=== PATIENT | female | born 1975 | race Two or more races ===

== ENCOUNTER 2016-08-27 14:46 | Outpatient (CLI) | payer BC ==
[2016-08-27 16:00] LABS: APPEARANCE,URINE SLIGHTLY-CLOUDY; BILIRUBIN,URINE NEGATIVE (NEGATIVE); GLUCOSE, URINE NEGATIVE (NEGATIVE); KETONES,URINE NEGATIVE (NEGATIVE); LEUKOCYTE ESTERASE,URINE NEGATIVE (NEGATIVE); NITRITE,URINE NEGATIVE (NEGATIVE); PROTEIN,URINE NEGATIVE (NEGATIVE); URINE SPECIFIC GRAVITY 1.005; UROBILINOGEN,URINE NEGATIVE mg/dL (<2.0)
--- NOTE | 2016-08-27 16:01 | L&D Flow Sheet ---
LD Flowsheet Datetime Report Generated by CPN: 08/27/2016 16:00 Datetime: 08/27/2016 15:45 Vital Signs NBP Sys/Stacey/Mean (mmHg): 116 (QS system process) : 77 (QS system process) : 91 (QS system process) Pulse: 93 (QS system process) Datetime: 08/27/2016 15:15 Vital Signs NBP Sys/Stacey/Mean (mmHg): 108 (QS system process) : 63 (QS system process) : 80 (QS system process) Pulse: 96 (QS system process)
[2016-08-27 16:13] LABS: URINE BARBITURATES SCREEN NEGATIVE; URINE METHADONE SCREEN NEGATIVE; URINE OPIATES LOW NEGATIVE; URINE PHENCYCLIDINE SCREEN NEGATIVE
--- NOTE | 2016-08-27 16:59 | Non Stress Test Report ---
Non Stress Test Datetime Report Generated by CPN: 08/27/2016 16:59 DEMOGRAPHIC EGA NST: 34.6 INDICATION Indication for Study: Ordered by Provider MONITORING Monitor Explained: Monitor Explained; Test Explained; Patient Verbalized Understanding Time on Monitor: 08/27/2016 14:55 Time off Monitor: 08/27/2016 16:46 NST Duration: 111 NST INTERVENTIONS NST Interventions: PO Hydration; Reposition Patient Physician Notified NST: Dr. Deng BABY A: [id number] BABY A Movement : Present Contraction Frequency : 0 FHR Baseline : 130 Accelerations : 15X15 Decelerations : None Variability : Moderate 6-25bpm NST Review: Meets Criteria for Reactive NST NST Review and Verified By : Nusrat Greene RN NST Results: Reactive NST REPORT Report Trigger: Send Report
== END 2016-08-27 16:54 | disposition home or self-care (01) ==
LOC: LC 14:46
PROVIDERS: ATTEND Obstetrics & Gynecology
PROC: 4A1HXCZ Monitoring of Products of Conception, Cardiac Rate, External Approach (ICD-10-PCS; principal; 2016-08-27)
DX: O09.523 Supervision of elderly multigravida, third trimester (principal); Z3A.34 34 weeks gestation of pregnancy
CPT/HCPCS: 59025; 80307; 81001

== ENCOUNTER 2016-08-31 12:06 | Outpatient (CLI) | payer BC ==
--- NOTE | 2016-08-31 13:11 | Non Stress Test Report ---
Non Stress Test Datetime Report Generated by CPN: 08/31/2016 13:11 DEMOGRAPHIC EGA NST: 35.3 INDICATION Indication for Study: Ordered by Provider MONITORING Monitor Explained: Monitor Explained; Test Explained; Patient Verbalized Understanding Time on Monitor: 08/31/2016 12:20 Time off Monitor: 08/31/2016 13:03 NST Duration: 43 NST INTERVENTIONS NST Interventions: PO Hydration Physician Notified NST: P. Marcos, CNM BABY A: [id number] BABY A Movement : Present Contraction Frequency : none FHR Baseline : 145 Accelerations : 15X15 Decelerations : None Variability : Moderate 6-25bpm NST Review and Verified By : Theodore Winston RN NST Results: Reactive NST REPORT Report Trigger: Send Report
== END 2016-08-31 13:09 | disposition home or self-care (01) ==
LOC: LC 12:06
PROVIDERS: ATTEND Student in an Organized Health Care Education/Training Program
PROC: 4A1HXCZ Monitoring of Products of Conception, Cardiac Rate, External Approach (ICD-10-PCS; principal; 2016-08-31)
DX: O36.8130 Decreased fetal movements, third trimester, not applicable or unspecified (principal); O09.523 Supervision of elderly multigravida, third trimester; Z3A.35 35 weeks gestation of pregnancy
CPT/HCPCS: 59025; 82962

== ENCOUNTER 2016-09-28 06:12 | Inpatient (IN) | payer BC ==
[2016-09-24 10:52] LABS: ABSOLUTE EOSINOPHILS # (AUTO) 0.1 10^3/uL (0.0-0.6); ABSOLUTE LYMPHOCYTES (AUTO) 1.6 10^3/uL (0.5-4.7); ABSOLUTE MONOCYTES (AUTO) 0.6 10^3/uL (0.1-1.4); BASOPHILS % (AUTO) 0.2 % (0-2); EOSINOPHILS % (AUTO) 1.3 % (0-6); HEMATOCRIT 40.2 % (36.0-47.0); HEMOGLOBIN 13.7 g/dL (12.0-15.5); HGB HCT DIFFERENCE 0.9; LYMPHOCYTES % (AUTO) 15.7 % (13-45); MEAN CORPUSCULAR HGB CONC 34.2 g/dL (32.0-36.0); MEAN CORPUSCULAR VOLUME 91 fl (80-97); MONOCYTES % (AUTO) 5.5 % (3-13); RED BLOOD COUNT 4.44 10^6/uL (3.72-5.28); RED CELL DISTRIBUTION WIDTH 13.8 % (11.5-14.0); SEGMENTED NEUTROPHILS % (AUTO) 77.3 % (42-78); WHITE BLOOD COUNT 10.4 10^3/uL (4.0-10.5)
[2016-09-24 10:54] LABS: APPEARANCE,URINE SLIGHTLY-CLOUDY; BILIRUBIN,URINE NEGATIVE (NEGATIVE); GLUCOSE, URINE NEGATIVE (NEGATIVE); KETONES,URINE NEGATIVE (NEGATIVE); LEUKOCYTE ESTERASE,URINE NEGATIVE (NEGATIVE); NITRITE,URINE NEGATIVE (NEGATIVE); PROTEIN,URINE NEGATIVE (NEGATIVE); URINE SPECIFIC GRAVITY 1.003; UROBILINOGEN,URINE NEGATIVE mg/dL (<2.0)
[2016-09-24 11:13] LABS: URINE BARBITURATES SCREEN NEGATIVE; URINE METHADONE SCREEN NEGATIVE; URINE OPIATES LOW NEGATIVE; URINE PHENCYCLIDINE SCREEN NEGATIVE
[2016-09-28] MEDS ORDERED: CEFAZOLIN 2 GM/D5W RTU 2 GM/50 ML RTUPB IV ONE (06:30)
[2016-09-28] MEDS ORDERED: LACTATED RINGERS 1000 ML IV PRN (07:00)
[2016-09-28] MEDS ORDERED: LIDOCAINE 0.5% INJ-PF (5 MG/ML) 50 ML SDV SUBCUT PRN (07:00)
[2016-09-28] MEDS ORDERED: RINGERS SOLUTION,LACTATED 1,000 ML IV PRN (07:14)
[2016-09-28] MEDS ORDERED: OXYTOCIN 10 UNIT/ML VIAL ONE (10:33)
[2016-09-28] MEDS ORDERED: FENTANYL CITRATE INJ/PF 250 MCG/5 ML AMPULE ONE (10:34)
[2016-09-28] MEDS ORDERED: FENTANYL CITRATE INJ/PF 100 MCG/2 ML AMPUL ONE ×2 (10:34→14:25)
[2016-09-28] MEDS ORDERED: KETOROLAC TROMETHAMINE INJ/PF 30 MG/1 ML SDV ONE (10:34)
[2016-09-28] MEDS ORDERED: EPHEDRINE SULFATE INJ 50 MG/1 ML AMPULE ONE (10:34)
[2016-09-28] MEDS ORDERED: ACETAMINOPHEN 0 ML IV ONE (10:34)
[2016-09-28] MEDS ORDERED: OXYTOCIN/NORMAL SALINE 20 UNIT/1,000 ML RTUINJ ONE (10:34)
[2016-09-28] MEDS ORDERED: MIDAZOLAM 2 MG/2 ML INJ ONE ×3 (10:34→12:41)
[2016-09-28] MEDS ORDERED: ONDANSETRON HCL INJ/PF 4 MG/2 ML SDV ONE (10:35)
[2016-09-28] MEDS ORDERED: DIPHENHYDRAMINE HCL 50 MG/ML VIAL IV PRN (11:17)
[2016-09-28] MEDS ORDERED: ONDANSETRON HCL INJ/PF 4 MG/2 ML SDV IV PRN (11:17)
[2016-09-28] MEDS ORDERED: FENTANYL CITRATE INJ/PF 100 MCG/2 ML AMPUL IV PRN (11:17)
[2016-09-28] MEDS ORDERED: PROMETHAZINE HCL INJ 25 MG/1 ML VIAL IV PRN ×2 (11:17→13:45)
[2016-09-28] MEDS ORDERED: LABETALOL HCL INJ 20 MG/4 ML DISP.SYRIN IV PRN (11:17)
[2016-09-28] MEDS ORDERED: PROPOFOL INJ 200 MG/20 ML VIAL IV ONE (12:41)
[2016-09-28] MEDS ORDERED: HYDROMORPHONE HCL INJ/PF 2 MG/ML AMPULE IV PRN (13:45)
[2016-09-28] MEDS ORDERED: MEASLES,MUMPS&RUBELLA VACC/PF 0.5 ML VIAL SUBCUT PRN (13:45)
[2016-09-28] MEDS ORDERED: DIPH/PERTUSS(ACELL)/TETANUS VAC/PF 0.5 ML SYR (>=10YO) IM PRN (13:45)
[2016-09-28] MEDS ORDERED: OXYTOCIN/NORMAL SALINE 1,000 ML IV PRN (13:45)
[2016-09-28] MEDS ORDERED: OXYCODONE-ACETAMINOPHEN 5-325 MG TABLET PO PRN (13:45)
[2016-09-28] MEDS ORDERED: ACETAMINOPHEN 325 MG TABLET PO PRN (13:45)
[2016-09-28] MEDS ORDERED: SIMETHICONE 80 MG TAB.CHEW PO PRN (13:45)
--- NOTE | 2016-09-28 14:00 | L&D Flow Sheet ---
LD Flowsheet Datetime Report Generated by CPN: 09/28/2016 14:00 Datetime: 09/28/2016 13:58 NBP Sys/Stacey/Mean (mmHg): 116 (QS system process) : 71 (QS system process) : 88 (QS system process) Pulse: 83 (QS system process) Datetime: 09/28/2016 13:56 Pulse: 89 (QS system process) SpO2 (%): 99 (QS system process) Datetime: 09/28/2016 13:51 Pulse: 86 (QS system process) SpO2 (%): 100 (QS system process) Datetime: 09/28/2016 13:46 Pulse: 88 (QS system process) SpO2 (%): 100 (QS system process) Datetime: 09/28/2016 13:45 Stage of : Recovery (Trudi ALIDA Winston) Pain Scale: 0 (Trudi ALIDA Winston) Pain Presence: None/Denies (Trudi Winston RN) Pain Type: N/A (Trudi Vitrano, RN) Datetime: 09/28/2016 13:42 NBP Sys/Stacey/Mean (mmHg): 128 (QS system process) : 74 (QS system process) : 93 (QS system process) Pulse: 91 (QS system process) Respirations: 16 (Trudi Vitrano, RN) Datetime: 09/28/2016 13:41 Pulse: 92 (QS system process) SpO2 (%): 100 (QS system process) Datetime: 09/28/2016 13:36 Pulse: 88 (QS system process) SpO2 (%): 100 (QS system process) Datetime: 09/28/2016 13:30 Stage of : Recovery (Trudi Vitrano, RN) Pulse: 92 (QS system process) SpO2 (%): 99 (QS system process) Pain Scale: 0 (Trudi Vitrano, RN) Pain Presence: None/Denies (Trudi Vitrano, RN) Pain Type: N/A (Trudi Vitrano, RN) Datetime: 09/28/2016 13:27 NBP Sys/Stacey/Mean (mmHg): 115 (QS system process) : 71 (QS system process) : 88 (QS system process) Pulse: 81 (QS system process) Respirations: 16 (Trudi Vitrano, RN) Datetime: 09/28/2016 13:25 Pulse: 83 (QS system process) SpO2 (%): 99 (QS system process) Datetime: 09/28/2016 13:22 NBP Sys/Stacey/Mean (mmHg): 114 (QS system process) : 68 (QS system process) : 85 (QS system process) Pulse: 90 (QS system process) Respirations: 16 (Trudi Vitrano, RN) Datetime: 09/28/2016 13:20 Pulse: 83 (QS system process) SpO2 (%): 100 (QS system process) Datetime: 09/28/2016 13:17 NBP Sys/Stacey/Mean (mmHg): 170 (QS system process) : 60 (QS system process) : 86 (QS system process) Pulse: 106 (QS system process) Datetime: 09/28/2016 13:15 Pulse: 98 (QS system process) SpO2 (%): 99 (QS system process) Datetime: 09/28/2016 13:13 NBP Sys/Stacey/Mean (mmHg): 144 (QS system process) : 56 (QS system process) : 81 (QS system process) Pulse: 88 (QS system process) Respirations: 16 (Trudi Vitrano, RN) Datetime: 09/28/2016 13:10 Stage of : Recovery (Trudi Vitrano, RN) Pulse: 98 (QS system process) Respirations: 17 (Trudi Vitrano, RN) SpO2 (%): 99 (QS system process) Temperature (F): 98.5 (Trudi Vitrano, RN) Temperature (C): 36.9 (QS system process) Temperature Route: Oral (Trudi Vitrano, RN) Pain Scale: 0 (Trudi Vitrano, RN) Pain Presence: None/Denies (Trudi Vitrano, RN) Pain Type: N/A (Trudi Vitrano, RN) Datetime: 09/28/2016 07:24 Bedside Blood Glucose: 78 (QS system process) LaborFlag: OB Triage (QS system process)
[2016-09-28] MEDS ORDERED: ACETAMINOPHEN 100 ML IV ONE ×2 (14:30→14:31)
[2016-09-28] MEDS ORDERED: HYDROMORPHONE HCL INJ/PF 2 MG/ML AMPULE ONE (14:48)
--- NOTE | 2016-09-28 15:07 | Operative Report ---
Operative Report DATE OF SURGERY: 09/28/16 PREOPERATIVE DIAGNOSIS: 1. Intrauterine . 2. Intra-abdominal adhesions POSTOPERATIVE DIAGNOSIS: Same OPERATION: 1. Limited open lysis of adhesion. 2. Control of limited peritoneal bleeding SURGEON: KENA NORMAN 1ST EDUCATION AND OUTREACH COORDINATOR: WALLACE ALVARADO ANESTHESIA: Spinal TISSUE REMOVED OR ALTERED: None COMPLICATIONS: None ESTIMATED BLOOD LOSS: minimal INTRAOPERATIVE FINDINGS: See below PROCEDURE: As the general surgeon business administration program chair tomorrow I was asked to come and assist with an control of intra-abdominal bleeding. Upon my arrival, the patient remained under vital anesthesia; the baby had been delivered by section and taken to the nursery. The patient was hemodynamically stable and the uterus had been closed. Dr. Shankar was assisting Dr. Alvarado. I scrubbed in and Dr. Shankar scrubbed out. We found at this point the uterus anteflexed with a thickened evidence of adhesions along along the posterior surface of the uterus consistent with adhesio lysis, and electrocautery of losing. With hand-held retractors in position, there was minimal oozing coming from the mall bowel mesentery disease left cardinal ligament. There was no evidence of bowel injury, and oh evidence of serious mechanical bleeding. Performed adhesio lysis, limited, scissors to free up this portion of small bowel mesentery. We placed a packing in this area and called our attention to the posterior surface of the uterus which had some additional bleeding and this was managed by Dr. Alvarado with a Vicryl [id number] suture were controlled. We ran the small bowel from the ligament of Treitz down towards the terminal ileum and the bowel appeared to be completely normal. We then turned our attention again to the pelvis at the terminal end of the left ligament and there was only minimal ooze coming from the raw ooze peritoneum. We addressed this FloSeal and Surgicel. The area was irrigated out satisfactorily and we felt that the abdominal cavity was safer closure. The remainder the operation was conducted by Dr. Alvarado.
[2016-09-28] MEDS: OXYCODONE-ACETAMINOPHEN 5-325 MG TABLET PO PRN ×2 (16:55→20:59)
[2016-09-28] MEDS: DOCUSATE SODIUM 100 MG CAPSULE PO SCH (18:57)
[2016-09-29 07:42] LABS: HEMATOCRIT 29.5 % (36.0-47.0); HGB HCT DIFFERENCE 0.5; MEAN CORPUSCULAR HEMOGLOBIN 31.2 pg (27.0-33.4); MEAN CORPUSCULAR HGB CONC 34.1 g/dL (32.0-36.0); MEAN CORPUSCULAR VOLUME 92 fl (80-97); RED BLOOD COUNT 3.22 10^6/uL (3.72-5.28); RED CELL DISTRIBUTION WIDTH 13.6 % (11.5-14.0); WHITE BLOOD COUNT 18.3 10^3/uL (4.0-10.5)
[2016-09-29] MEDS: OXYCODONE-ACETAMINOPHEN 5-325 MG TABLET PO PRN ×4 (08:15→22:19)
[2016-09-29] MEDS: DOCUSATE SODIUM 100 MG CAPSULE PO SCH ×2 (09:12→17:11)
[2016-09-29] MEDS: PRENATAL VITAMIN W-O CA NO5/FE FUMARATE/FA CAPSULE PO SCH (09:13)
--- NOTE | 2016-09-29 10:19 | PDOC PROGRESS REPORT ---
Subjective-OB Subjective: Post Delivery Day: 41 year old. Denies any needs at this time. Pt doing well, ambulatory. She reports regular diet, denies flatus. Reports minimal bleeding. Physical Exam (OB) Vital Signs: Temp Pulse Resp BP Pulse Ox 98.6 F 93 18 120/81 99 09/29/16 07:49 09/29/16 07:49 09/29/16 07:49 09/29/16 07:49 09/29/16 07:49 Intake & Output 09/28/16 09/29/16 09/30/16 06:59 06:59 06:59 Intake Total 690 Output Total 900 Balance -210 Weight 61 kg - Dressing Removed: No - open to air Incision: Open, Well Approximated Closure Type: Surgical Glue - Lochia Lochia Amount: Small 10-25 ml Lochia Color: Rubra/Red - Abdomen Description: Tender, Soft Hernia Present: No Fundal Description: Firm, Midline Fundal Height: u/u - u/2 Objective-Diagnostic Laboratory: 09/29/16 07:29 09/29/16 07:29 WBC 18.3 H RBC 3.22 L Hgb 10.0 L Hct 29.5 L MCV 92 MCH 31.2 MCHC 34.1 RDW 13.6 Plt Count 228 Assessment and Plan(PN) - Assessment and Plan (1) delivery delivered Is this a current diagnosis for this admission?: Yes - Time Spent with Patient Time with patient: Less than 15 minutes Medications reviewed and adjusted accordingly: Yes - Disposition Anticipated Discharge: Home Within: within 48 hours
[2016-09-30] MEDS: OXYCODONE-ACETAMINOPHEN 5-325 MG TABLET PO PRN ×2 (05:34→09:37)
[2016-09-30 07:43] LABS: ABSOLUTE EOSINOPHILS # (AUTO) 0.2 10^3/uL (0.0-0.6); ABSOLUTE LYMPHOCYTES (AUTO) 1.7 10^3/uL (0.5-4.7); ABSOLUTE MONOCYTES (AUTO) 0.6 10^3/uL (0.1-1.4); ABSOLUTE NEUT (AUTO) 11.6 10^3/uL (1.7-8.2); BASOPHILS % (AUTO) 0.2 % (0-2); EOSINOPHILS % (AUTO) 1.3 % (0-6); HEMATOCRIT 28.6 % (36.0-47.0); HEMOGLOBIN 9.6 g/dL (12.0-15.5); HGB HCT DIFFERENCE 0.2; MEAN CORPUSCULAR HGB CONC 33.5 g/dL (32.0-36.0); MEAN CORPUSCULAR VOLUME 93 fl (80-97); MONOCYTES % (AUTO) 4.6 % (3-13); RED BLOOD COUNT 3.09 10^6/uL (3.72-5.28); RED CELL DISTRIBUTION WIDTH 13.8 % (11.5-14.0); SEGMENTED NEUTROPHILS % (AUTO) 81.9 % (42-78); WHITE BLOOD COUNT 14.1 10^3/uL (4.0-10.5)
[2016-09-30] MEDS: PRENATAL VITAMIN W-O CA NO5/FE FUMARATE/FA CAPSULE PO SCH (09:37)
[2016-09-30] MEDS: DOCUSATE SODIUM 100 MG CAPSULE PO SCH (09:37)
--- NOTE | 2016-09-30 11:21 | PDOC PROGRESS REPORT ---
Subjective-OB Subjective: Post Delivery Day: 41 year old. Denies any needs at this time. Ready to go home. Physical Exam (OB) Vital Signs: Temp Pulse Resp BP Pulse Ox 98.6 F 90 16 129/82 H 98 09/30/16 08:32 09/30/16 08:32 09/30/16 08:32 09/30/16 08:32 09/30/16 08:32 Intake & Output 09/29/16 09/30/16 10/01/16 06:59 06:59 06:59 Intake Total 690 950 Output Total 900 Balance -210 950 Weight 61 kg - PIH/Pre-Eclampsia Clonus: Negative Headache: Absent Epigastric Pain: Yes Visual Changes: No - Dressing Removed: No - open to air Incision: Open, Well Approximated Closure Type: Surgical Glue - Lochia Lochia Amount: Scant < 10 ml Lochia Color: Rubra/Red - Abdomen Description: Soft, Round Hernia Present: No Bowel Sounds: Normoactive Flatus Presence: Present Stool: No Fundal Description: Firm Fundal Height: u/u - u/2 Objective-Diagnostic Laboratory: 09/30/16 07:10 09/30/16 07:10 WBC 14.1 H RBC 3.09 L Hgb 9.6 L Hct 28.6 L MCV 93 MCH 31.0 MCHC 33.5 RDW 13.8 Plt Count 260 Seg Neutrophils % 81.9 H Lymphocytes % 12.0 L Monocytes % 4.6 Eosinophils % 1.3 Basophils % 0.2 Absolute Neutrophils 11.6 H Absolute Lymphocytes 1.7 Absolute Monocytes 0.6 Absolute Eosinophils 0.2 Absolute Basophils 0.0 Assessment and Plan(PN) - Time Spent with Patient Medications reviewed and adjusted accordingly: Yes - Disposition Anticipated Discharge: Home
--- NOTE | 2016-09-30 11:56 | PDOC DISCHARGE SUMMARY ---
Final Diagnosis Discharge Date: 09/30/16 - Final Diagnosis (1) AMA (advanced maternal age) multigravida 35+ Is this a current diagnosis for this admission?: Yes (2) delivery delivered Is this a current diagnosis for this admission?: Yes (3) GDM (gestational diabetes mellitus) Is this a current diagnosis for this admission?: Yes (4) Is this a current diagnosis for this admission?: Yes (5) Transverse lie of fetus Is this a current diagnosis for this admission?: Yes Discharge Data - Discharge Medication Home Medications: Vit/Iron Fumarate/FA [ Tablet] 1 each PO DAILY 08/27/16 Docusate Sodium [Colace 100 mg Capsule] 100 mg PO BID #30 capsule 09/30/16 Ibuprofen 800 mg PO Q8HP PRN #30 tablet 09/30/16 Oxycodone HCl/Acetaminophen [Percocet 5-325 mg Tablet] 1 tab PO Q4HP PRN #20 tablet 09/30/16 Gestational Age: 39.3 wks Reason(s) for Admission: Ceasarean Section-Repeat Procedures: NST, Ultrasound Intrapartum Procedure(s): : Low Cervical, Transverse - [place] Data Baby 1 Male at 1 minute: 2 at 5 minutes: 9 Weight: 3.033 kg Home with Mother: Yes Complications: No - Diagnosis Test Laboratory: Temp Pulse Resp BP Pulse Ox 98.6 F 90 16 129/82 H 98 09/30/16 08:32 09/30/16 08:32 09/30/16 08:32 09/30/16 08:32 09/30/16 08:32 09/24/16 09/24/16 09/29/16 09:53 10:02 07:29 RBC 4.44 3.22 L Hgb 13.7 10.0 L Hct 40.2 29.5 L Urine Opiates Screen NEGATIVE 09/30/16 07:10 RBC 3.09 L Hgb 9.6 L Hct 28.6 L Urine Opiates Screen - Discharge information/Instructions Discharge Activity: Activity As Tolerated, Balance Activity w/Rest, No Driving, No Lifting Over 10 Pounds, No Lifting/Push/Pulling, Pelvic Rest, Slowly Increase Activity, No tub bath Discharge Diet: Regular Disposition: HOME, SELF-CARE Follow up with: [facility] in: 1, Weeks
[2016-09-30 12:03] VITALS: BP 127/85
--- NOTE | 2016-10-04 22:52 | Operative Report ---
Nonrecallable Operative Report DATE OF SURGERY: 09/28/16 OPERATION: Prmary via pfannensteil incision 1ST STRIP MACHINE TENDER: BRETT CHAMBERS ANESTHESIA: Spinal PROCEDURE: PREOPERATIVE DIAGNOSIS: undelivered at [39+3] weeks, malpresentation with transverse presentation POSTOPERATIVE DIAGNOSIS: Same as above delivered Procedure: Primary section via Pfannenstiel incision, Lysis of adhesions Supervisor Ski Production:[None] Anesthesia: Spinal Anesthesia provider: [Angel Bhatt INGOT WEIGHER] Estimated blood loss: [600ml] Urine output: [250ml] IV fluids: [3000ml] Complications: [Adhesions of the bowel to posterior uterus. Dr. Gomez called for assistance please see his dictation.] Specimens: [None] Findings: [VMI with transverse back up presentation delivered in breech presentation, triple nuchal cord noted (very tight), meconium stained amniotic fluid noted upon uterine entry. Times of delivery 1124. weight 6#11oz, Apgars 2/9. Normal tubes and ovaries bilaterally, normal uterus except for filmy adhesions from posterior uterus to bowel and diffuse bleeding on posterior uterus after removal of these adhesions, Adhesions from the bowel to the left ovary and mesenteric portion of utero-ovarian ligament.] Indications: [41yo at 39+3ega with JAIME 10/02/2016 with persistent transverse presentaion and the patient declined ECV. THe risks/benefits/ alternatives to Primary section reviewed and the patient desired to proceed with planned procedure.] Procedure: The patient was taken to the operating room where spinal anesthesia was obtained and found to be adequate. She was then prepped and draped in the normal sterile fashion and placed in the dorsal supine position with a leftward tilt. A Pfannenstiel skin incision was then made and carried through to the underlying layers of the fascia with the scalpel. The fascia was incised in the midline and the incision extended laterally with the Engel scissors. The superior aspect of the fascial incision was then grasped with Shima clamps elevated and the underlying rectus muscles dissected off [bluntly]. Attention was then turned to the inferior aspect of the fascial incision which in a similar fashion was grasped, tented up with Hector clamps, and the rectus muscles dissected off [bluntly]. The rectus muscles were then in the midline and the peritoneum at the amount identified and entered [bluntly]. The peritoneal incision was then extended superiorly and inferiorly with good visualization of the bladder. The bladder blade was inserted and the vesicouterine peritoneum identified grasped with Sudanese pickups and entered sharply with the Metzenbaum scissors. This incision was then extended laterally with the Metzenbaum scissors and a bladder flap created digitally. The bladder blade was then reinserted and the lower uterine segment incised in a transverse fashion with the scalpel. The uterine incision was then extended bluntly. The bladder blade was removed and the converted from the transverse presentation and was delivered in breech presentation atraumatically. The triple nuchal cord was reduced. The nose and mouth were suctioned and the cord doubly clamped and cut. And the infant was handed off to waiting pediatricians. The placenta was then delivered spontaneously and the uterus exteriorized and cleared of all clots and debris. The uterine incision was then repaired with 1- 0 Vicryl in a running locked fashion. A second layer of the same suture was used to obtain hemostasis via imbrication of the initial layer. The bladder flap was then repaired with 3-0 chromic in a running fashion. The postior surface of the uterus had multiple areas with poor hemostasis requiring both cautery and suture for hemostasis. After hemostasis obtained there was continued bleeding noted from bowel adhesions to the mesenteric portion of the utero-ovarian ligament. Dr. Chambers and Dr. Gomez called for assistance with evaluation and exposure. Dr. Gomez assisted with evaluation of the bowel and its hemostasis. See his dictation for this portion. The omentum was noted to be hemostatic. THe posterior surface of the uterus was again evaluatedand hemostatic and floseal and interceed applied. The uterus was returned to the patient's abdomen and Interceed was placed overlying the uterine incision to prevent adhesions. The gutters were cleared of all clots and debris. All operative sites were noted to be hemostatic. The fascia was reapproximated with 0 Vicryl in a running fashion from each lateral edge to the midline. The skin was closed with 3-0 Monocryl in a running subcuticular fashion with overlying Dermabond for additional dressing as well as wound closure. The patient tolerated the procedure well. Sponge lap needle and instrument counts are correct times 2. 2 g of Ancef were given prior to skin incision. The patient was taken to the recovery area awake and in stable condition.
== END 2016-09-30 15:10 | disposition home or self-care (01) | DRG 766 ==
LOC: 2S 06:12
PROVIDERS: ADMIT Student in an Organized Health Care Education/Training Program; ATTEND Student in an Organized Health Care Education/Training Program
PROC: 0DNV0ZZ Release Mesentery, Open Approach (ICD-10-PCS; 2016-09-28)
PROC: 0UQ90ZZ Repair Uterus, Open Approach (ICD-10-PCS; 2016-09-28)
PROC: 4A1HXCZ Monitoring of Products of Conception, Cardiac Rate, External Approach (ICD-10-PCS; 2016-09-28)
PROC: 10D00Z1 Extraction of Products of Conception, Low, Open Approach (ICD-10-PCS; principal; 2016-09-28 09:00)
DX: O64.8XX0 Obstructed labor due to other malposition and malpresentation, not applicable or unspecified (principal); O99.89 Other specified diseases and conditions complicating pregnancy, childbirth and the puerperium; O69.1XX0 Labor and delivery complicated by cord around neck, with compression, not applicable or unspecified; N73.6 Female pelvic peritoneal adhesions (postinfective); O77.0 Labor and delivery complicated by meconium in amniotic fluid; O67.8 Other intrapartum hemorrhage; O24.420 Gestational diabetes mellitus in childbirth, diet controlled; Z3A.39 39 weeks gestation of pregnancy; Z37.0 Single live birth
CPT/HCPCS: 1961; 36415; 59025; 80307; 81001; 82962; 85025; 85027; 86850; 86900; 86901; 94799; C1765; J0131; J1170; J1885; J2250; J2405; J2590; J2704; J3010; J3490

== ENCOUNTER 2018-06-06 05:45 | Inpatient (IN) | payer BC ==
[2018-06-03 12:43] LABS: ABSOLUTE EOSINOPHILS # (AUTO) 0.1 10^3/uL (0.0-0.6); ABSOLUTE LYMPHOCYTES (AUTO) 1.6 10^3/uL (0.5-4.7); ABSOLUTE MONOCYTES (AUTO) 0.4 10^3/uL (0.1-1.4); ABSOLUTE NEUT (AUTO) 8.1 10^3/uL (1.7-8.2); BASOPHILS % (AUTO) 0.2 % (0-2); EOSINOPHILS % (AUTO) 0.7 % (0-6); HEMATOCRIT 39.6 % (36.0-47.0); HEMOGLOBIN 13.8 g/dL (12.0-15.5); LYMPHOCYTES % (AUTO) 15.8 % (13-45); MEAN CORPUSCULAR HEMOGLOBIN 31.5 pg (27.0-33.4); MEAN CORPUSCULAR HGB CONC 34.8 g/dL (32.0-36.0); MEAN CORPUSCULAR VOLUME 91 fl (80-97); MONOCYTES % (AUTO) 4.1 % (3-13); PLATELET COUNT 316 10^3/uL (150-450); RED BLOOD COUNT 4.37 10^6/uL (3.72-5.28); RED CELL DISTRIBUTION WIDTH 13.8 % (11.5-14.0); SEGMENTED NEUTROPHILS % (AUTO) 79.2 % (42-78); TOTAL CELLS COUNTED % (AUTO) 100 %; WHITE BLOOD COUNT 10.2 10^3/uL (4.0-10.5)
[2018-06-03 12:53] LABS: APPEARANCE,URINE SLIGHTLY-CLOUDY; BILIRUBIN,URINE NEGATIVE (NEGATIVE); COLOR,URINE YELLOW; GLUCOSE, URINE NEGATIVE (NEGATIVE); KETONES,URINE NEGATIVE (NEGATIVE); LEUKOCYTE ESTERASE,URINE NEGATIVE (NEGATIVE); NITRITE,URINE NEGATIVE (NEGATIVE); PROTEIN,URINE NEGATIVE (NEGATIVE); URINE SPECIFIC GRAVITY 1.012; UROBILINOGEN,URINE NEGATIVE mg/dL (<2.0)
[2018-06-03 13:06] LABS: URINE AMPHETAMINES SCREEN NEGATIVE; URINE BARBITURATES SCREEN NEGATIVE; URINE BENZODIAZEPINES SCREEN NEGATIVE; URINE COCAINE SCREEN NEGATIVE; URINE MARIJUANA (THC) SCREEN NEGATIVE; URINE METHADONE SCREEN NEGATIVE; URINE PHENCYCLIDINE SCREEN NEGATIVE
[~2018-06-06 05:45] MED LIST: CEFAZOLIN 1 GM/D5W RTU 1 GM/50 ML RTUPB IV PRN; LACTATED RINGERS 1000 ML IV PRN; LIDOCAINE 0.5% INJ-PF (5 MG/ML) 50 ML SDV SUBCUT PRN; RINGERS SOLUTION,LACTATED 2,000 ML IV PRN
[2018-06-06] MEDS ORDERED: KETAMINE HCL INJ 500 MG/10 ML VIAL ONE (06:55)
[2018-06-06] MEDS ORDERED: BUPIVACAINE HCL/DEX-WATER/PF 15 MG/2 ML AMPULE ONE (07:00)
[2018-06-06] MEDS ORDERED: OXYTOCIN 10 UNIT/ML VIAL ONE (07:00)
[2018-06-06] MEDS ORDERED: FENTANYL CITRATE INJ/PF 100 MCG/2 ML AMPUL ONE (07:00)
[2018-06-06] MEDS ORDERED: EPHEDRINE SULFATE INJ 50 MG/1 ML AMPULE ONE (07:00)
[2018-06-06] MEDS ORDERED: MIDAZOLAM 2 MG/2 ML INJ ONE (07:01)
[2018-06-06] MEDS ORDERED: OXYTOCIN/NORMAL SALINE 20 UNIT/1,000 ML RTUINJ ONE (07:01)
[2018-06-06] MEDS ORDERED: ACETAMINOPHEN 1,000 MG/100 ML RTUPB IV ONE (07:01)
[2018-06-06] MEDS ORDERED: ONDANSETRON HCL INJ/PF 4 MG/2 ML SDV ONE (07:01)
[2018-06-06] MEDS ORDERED: MORPHINE SULFATE 10 MG/ML INJ IV PRN (08:03)
[2018-06-06] MEDS ORDERED: MEPERIDINE HCL/PF INJ 25 MG/1 ML DISP.SYRIN IV PRN (08:03)
[2018-06-06] MEDS ORDERED: DIPHENHYDRAMINE HCL 50 MG/ML VIAL IV PRN (08:03)
[2018-06-06] MEDS ORDERED: FENTANYL CITRATE INJ/PF 100 MCG/2 ML AMPUL IV PRN ×3 (08:03)
[2018-06-06] MEDS ORDERED: PROMETHAZINE HCL INJ 25 MG/1 ML VIAL IV PRN ×3 (08:03→09:11)
--- NOTE | 2018-06-06 09:05 | PDOC DELIVERY SUMMARY ---
Delivery Summary - Maternal Hx : II Hx # Term Pregnancies: 1 JAIME: 06/11/18 Gestational Age: 39.2 Ruptured Membranes: AROM Time of Rupture: 08:25 Fluids: Clear - Delivery Presentation: Vertex Heart Rate Monitoring: Done Pre-Operatively Support Person Present: Yes Location: OR : Scheduled Placenta: Within Normal Limits Delivery of Placenta Date: 06/06/18 Delivery of Placenta Time: 08:26 - Medications Type of Anesthesia:: Spinal - Assess and Care Baby 1 Male Delivery of Infant Date: 06/06/18 Delivery of Infant Time: 08:25 at 1 minute: 9 at 5 minutes: 9 Preprinted Number On Band: [id number] Skin to Skin: Yes Skin to Skin (Mins): 3 To Nursery At: 08:33 Mode of Transport: Bassinet Delivery Weight: 3,290 Infant Delivery Length: 19.5 in - Delivery Personnel Human Resources Manager: MARLY JASMINE RN: LOLITA LAIRD RN: KOBY GLASER MD: KETNON LEOS
--- NOTE | 2018-06-06 09:10 | Operative Report ---
Operative Report DATE OF SURGERY: 06/06/18 PREOPERATIVE DIAGNOSIS: Patient desires repeat to prevent risk from uterine rupture POSTOPERATIVE DIAGNOSIS: Same with the addition of dense scarring with bowel adhesion to the back of the uterus. OPERATION: Repeat via low transverse uterine incision and skin scar revision SURGEON: KENTON LEOS ANESTHESIA: Spinal TISSUE REMOVED OR ALTERED: Placenta and keloid skin scar COMPLICATIONS: None ESTIMATED BLOOD LOSS: 250 cc INTRAOPERATIVE FINDINGS: Viable male. Dense scar at the fascial level. Bowel adhesion to the back of the uterus. PROCEDURE: Patient was taken to the OR and placed in supine position after her spinal anesthesia. She is prepared and draped in sterile fashion. Schneider was placed for drainage of the bladder. Low transverse incision was made and carried down the level of the fascia. The fascial incision was made with knife and extended bilaterally with curved Engel scissors. The fascia was off the rectus muscles using sharp and blunt dissection. The rectus muscles are in the midline. The peritoneum was entered without incident. Bladder blade was placed in uterine segment was identified. A low transverse incision was made creating a bladder flap. Bladder blade was placed low transverse uterine incision was made with the csafe knife and extended with fingertips. The baby was delivered with some fundal pressure. Mouth and nose were suctioned free. The cord is doubly clamped and cut. Baby is passed off to the roof promenade tile setter in attendance. The placenta was manually extracted with trailing membranes. The uterus was externalized wrapped in a moist lap sponge. Uterine contents wiped free. Uterus was closed with a running locking layer of 0 chromic suture using the second layer to imbricate the first completing a double layer closure of the uterus. The serosa was closed with a running 2-0 chromic stitch. The pelvis was irrigated and suctioned free of fluid the uterus was replaced in the abdomen. Some bowel adhesion was noted to the back of the uterus. There was no evidence of injury to the bowel. Because of its dense nature and the patient was not having difficulty with bowel function this was left alone. The abdominal wall peritoneum was closed with running 2-0 chromic stitch. Fascia was closed with a running 0 Vicryl in 2 segments. Claude's layer was brought together with 0 plain gut stitch and the skin was closed with running subcuticular 4-0 undyed Vicryl stitch. The wound was dressed mother and baby did well.
[2018-06-06] MEDS ORDERED: OXYTOCIN/NORMAL SALINE 20 UNIT/1,000 ML RTUINJ IV PRN (09:11)
[2018-06-06] MEDS ORDERED: SIMETHICONE 80 MG TAB.CHEW PO PRN (09:11)
[2018-06-06] MEDS ORDERED: ACETAMINOPHEN 325 MG TABLET PO PRN (09:11)
[2018-06-06] MEDS ORDERED: RINGERS SOLUTION,LACTATED 1,000 ML IV PRN (09:11)
[2018-06-06] MEDS ORDERED: DIPH/PERTUSS(ACELL)/TETANUS VAC/PF 0.5 ML SYR (>=10YO) IM PRN (09:11)
[2018-06-06] MEDS ORDERED: ACETAMINOPHEN 1,000 MG/100 ML RTUPB IV PRN (09:11)
[2018-06-06] MEDS ORDERED: OXYCODONE-ACETAMINOPHEN 5-325 MG TABLET PO PRN (09:11)
[2018-06-06] MEDS ORDERED: MEASLES,MUMPS&RUBELLA VACC/PF 0.5 ML VIAL SUBCUT PRN (09:11)
[2018-06-06] MEDS ORDERED: HYDROMORPHONE HCL INJ/PF 2 MG/ML AMPULE IV PRN (09:11)
[2018-06-06] MEDS ORDERED: MISOPROSTOL 0.2 MG TABLET ONE (10:52)
[2018-06-06] MEDS ORDERED: MISOPROSTOL 0.2 MG TABLET PR ONE (11:45)
[2018-06-06] MEDS: PRENATAL VITAMIN W DHA CAPSULE PO SCH (13:34)
[2018-06-06] MEDS: DOCUSATE SODIUM 100 MG CAPSULE PO SCH ×2 (13:34→18:15)
[2018-06-06] MEDS: KETOROLAC TROMETHAMINE INJ/PF 30 MG/1 ML SDV IV SCH ×2 (13:35→18:15)
[2018-06-06] MEDS: OXYCODONE-ACETAMINOPHEN 5-325 MG TABLET PO PRN ×2 (16:20→21:14)
[2018-06-07] MEDS: KETOROLAC TROMETHAMINE INJ/PF 30 MG/1 ML SDV IV SCH (02:30)
[2018-06-07 06:16] LABS: HEMATOCRIT 30.9 % (36.0-47.0); HEMOGLOBIN 10.8 g/dL (12.0-15.5); MEAN CORPUSCULAR HEMOGLOBIN 31.2 pg (27.0-33.4); MEAN CORPUSCULAR HGB CONC 34.8 g/dL (32.0-36.0); MEAN CORPUSCULAR VOLUME 90 fl (80-97); PLATELET COUNT 245 10^3/uL (150-450); RED BLOOD COUNT 3.45 10^6/uL (3.72-5.28); RED CELL DISTRIBUTION WIDTH 13.5 % (11.5-14.0); WHITE BLOOD COUNT 13.6 10^3/uL (4.0-10.5)
[2018-06-07] MEDS: OXYCODONE-ACETAMINOPHEN 5-325 MG TABLET PO PRN ×2 (08:20→14:41)
[2018-06-07] MEDS ORDERED: IBUPROFEN 800 MG TABLET PO SCH ×2 (09:00→18:00)
[2018-06-07] MEDS ORDERED: KETOROLAC TROMETHAMINE INJ/PF 30 MG/1 ML SDV IV ONE (09:00)
[2018-06-07] MEDS: DOCUSATE SODIUM 100 MG CAPSULE PO SCH ×2 (09:43→18:40)
[2018-06-07] MEDS: PRENATAL VITAMIN W DHA CAPSULE PO SCH (09:44)
--- NOTE | 2018-06-07 14:02 | PDOC PROGRESS REPORT ---
Subjective-OB Progress Note for:: 06/07/18 Subjective: reports bleeding showing, pain controlled with current meds, denies needs Physical Exam (OB) Vital Signs: Temp Pulse Resp BP Pulse Ox 98.1 F 78 18 118/75 97 06/07/18 11:47 06/07/18 11:47 06/07/18 11:47 06/07/18 11:47 06/07/18 11:47 Intake & Output 06/06/18 06/07/18 06/08/18 06:59 06:59 06:59 Intake Total 4410 500 Output Total 4350 Balance 60 500 Weight 62.3 kg - Dressing Removed: No Incision: Dressing, Well Approximated Closure Type: op site - Abdomen Description: Soft, Round Hernia Present: No Fundal Description: Firm Fundal Height: u/u - u/2 - Abdominal Distension: No distension Tenderness: Nontender - Extremities Calf: Normal, Nontender Objective-Diagnostic Laboratory: 06/07/18 06:08 06/07/18 06:08 WBC 13.6 H RBC 3.45 L Hgb 10.8 L Hct 30.9 L MCV 90 MCH 31.2 MCHC 34.8 RDW 13.5 Plt Count 245 Assessment and Plan(PN) - Assessment and Plan (1) hemorrhage Qualifiers: hemorrhage type: unspecified Qualified Code(s): O72.1 - Other immediate hemorrhage Is this a current diagnosis for this admission?: Yes (2) delivery delivered Is this a current diagnosis for this admission?: Yes (3) GDM (gestational diabetes mellitus) Is this a current diagnosis for this admission?: Yes - Time Spent with Patient Time with patient: Less than 15 minutes Smoking Education Provided: Over 3 minutes - Disposition Anticipated Discharge: Home Within: within 24 hours
[2018-06-07] MEDS: IBUPROFEN 800 MG TABLET PO SCH ×2 (14:41→22:13)
[2018-06-08] MEDS: IBUPROFEN 800 MG TABLET PO SCH ×3 (04:10→14:31)
[2018-06-08] MEDS: OXYCODONE-ACETAMINOPHEN 5-325 MG TABLET PO PRN (07:46)
[2018-06-08 08:18] VITALS: BP 119/72
[2018-06-08] MEDS: DOCUSATE SODIUM 100 MG CAPSULE PO SCH (09:50)
[2018-06-08] MEDS: PRENATAL VITAMIN W DHA CAPSULE PO SCH (09:50)
--- NOTE | 2018-06-08 11:47 | PDOC DISCHARGE SUMMARY ---
Final Diagnosis Discharge Date: 06/08/18 - POD #2, doing well, desires to go home today. s/p Rpt w/ QBL total 1123 since delivery. A+, Rubella immune, plans to bottle feed Discharge Data - Discharge Medication Prescriptions: Ibuprofen [Motrin 800 mg Tablet] 800 mg PO Q6A #60 tablet Oxycodone HCl/Acetaminophen [Percocet 5-325 mg Tablet] 1 tab PO Q4HP PRN #30 tablet PRN Reason: For Pain Scale 3-4 Home Medications: Vit/Iron Fum/Folic AC [ Tablet] 1 each PO DAILY 08/27/16 Ibuprofen [Motrin 800 mg Tablet] 800 mg PO Q6A #60 tablet 06/08/18 Oxycodone HCl/Acetaminophen [Percocet 5-325 mg Tablet] 1 tab PO Q4HP PRN #30 tablet 06/08/18 Reason(s) for Admission: Ceasarean Section-Repeat, Vaginal Bleading Procedures: NST, Ultrasound Intrapartum Procedure(s): : Low Cervical, Transverse - Diagnosis Test Laboratory: Temp Pulse Resp BP Pulse Ox 98.2 F 78 16 119/72 96 06/08/18 08:00 06/08/18 08:00 06/08/18 08:00 06/08/18 08:00 06/08/18 08:00 06/03/18 06/03/18 06/07/18 11:00 11:07 06:08 RBC 4.37 3.45 L Hgb 13.8 10.8 L Hct 39.6 30.9 L Urine Opiates Screen NEGATIVE - Discharge information/Instructions Discharge Activity: Activity As Tolerated, No Driving, No Lifting Over 10 Pounds , Pelvic Rest Discharge Diet: As Tolerated, Regular Disposition: HOME, SELF-CARE Follow up with: [facility] in: 1, Weeks - for incision check
== END 2018-06-08 16:30 | disposition home or self-care (01) | DRG 787 ==
LOC: 2S 05:45 → EDSTATUS 07:45
PROVIDERS: ADMIT Obstetrics & Gynecology; ATTEND Obstetrics & Gynecology
PROC: 4A1HXCZ Monitoring of Products of Conception, Cardiac Rate, External Approach (ICD-10-PCS; 2018-06-06)
PROC: 10D00Z1 Extraction of Products of Conception, Low, Open Approach (ICD-10-PCS; principal; 2018-06-06 07:45)
DX: O34.211 Maternal care for low transverse scar from previous cesarean delivery (principal); O72.1 Other immediate postpartum hemorrhage; O24.429 Gestational diabetes mellitus in childbirth, unspecified control; Z3A.39 39 weeks gestation of pregnancy; Z37.0 Single live birth
CPT/HCPCS: 1961; 36415; 80307; 81001; 85025; 85027; 86850; 86900; 86901; 94799; C1765; J0131; J0690; J1170; J1885; J2250; J2405; J2590; J3010; J3490; J7120